=== PATIENT | female | born 1985 | race American Indian/Alaskan Native ===

== ENCOUNTER 2016-08-15 10:38 | Emergency (ER) | payer SELFPAY ==
[2016-08-15 11:00] VITALS: BP 120/71
[2016-08-15 11:35] LABS: Blood Urea Nitrogen 6 mg/dL (7-17); Calcium 9.4 mg/dL (8.4-10.2); Carbon Dioxide 22 mmol/L (22-30); Glucose 98 mg/dL (65-100)
[2016-08-15 11:36] LABS: Anion Gap 17 mmol/L; Potassium 3.5 mmol/L (3.6-5.0); Sodium 139 mmol/L (137-145)
[2016-08-15 12:02] LABS: Basophils % (Auto) 0.7 % (0.0-1.8); Eosinophils % (Auto) 1.2 % (0.0-4.3); Hematocrit 40.7 % (30.3-42.9); Hemoglobin 13.6 gm/dl (10.1-14.3); Mean Corpuscular HGB Conc 34 % (30-34); Mean Corpuscular Hemoglobin 32 pg (28-32); Mean Corpuscular Volume 94 fl (79-97); Platelet Count 195 K/mm3 (140-440); Red Blood Count 4.32 M/mm3 (3.65-5.03); Red Cell Distribution Width 13.1 % (13.2-15.2); White Blood Count 5.8 K/mm3 (4.5-11.0)
[2016-08-15 13:47] LABS: Bacteria,Urine 2+ /HPF (Negative); Bilirubin,Urine NEG (Negative); Blood,Urine NEG (Negative); Ketones,Urine TR mg/dL (Negative); Leukocyte Esterase,Urine TR (Negative); Mucus,Urine 1+ /HPF; Nitrite,Urine NEG (Negative); Protein,Urine <15 mg/dL mg/dL (Negative)
--- NOTE | 2016-08-16 12:43 | ED Elopement Review ---
ED Pt Elopement review - Results review Lab results: Laboratory Tests 08/15/16 08/15/16 08/15/16 11:10 11:10 12:23 WBC 5.8 RBC 4.32 Hgb 13.6 Hct 40.7 MCV 94 MCH 32 MCHC 34 RDW 13.1 L Plt Count 195 Lymph % (Auto) 42.0 H [place] % (Auto) 6.7 Eos % (Auto) 1.2 Baso % (Auto) 0.7 Lymph # 2.4 [place] # 0.4 Eos # 0.1 Baso # 0.0 Seg Neutrophils % 49.4 Seg Neutrophils # 2.9 Sodium 139 Potassium 3.5 L Chloride 104.0 Carbon Dioxide 22 Anion Gap 17 BUN 6 L Creatinine 0.6 L Estimated GFR > 60 BUN/Creatinine Ratio 10.00 Glucose 98 Calcium 9.4 Urine Color Yellow Urine Turbidity Clear Urine pH 6.0 Ur Specific [place] 1.018 Urine Protein <15 mg/dl Urine Glucose (UA) Neg Urine Ketones Tr Urine Blood Neg Urine Nitrite Neg Ur Reducing Substances Not Reportable Urine Bilirubin Neg Urine Ictotest Not Reportable Urine Urobilinogen 4.0 Ur Leukocyte Esterase Tr Urine WBC (Auto) 6.0 Urine RBC (Auto) 5.0 U Epithel Cells (Auto) 5.0 Urine Bacteria (Auto) 2+ Urine Mucus 1+ Urine HCG, Qual Negative - Call Back decision Pt Call Back Decision: No action required
== END 2016-08-15 20:45 | disposition left against medical advice (07) ==
LOC: ED 10:38
DX: M54.9 Dorsalgia, unspecified (principal); R31.9 Hematuria, unspecified; Z53.21 Procedure and treatment not carried out due to patient leaving prior to being seen by health care provider
CPT/HCPCS: 36415; 80048; 81001; 81025; 85025

== ENCOUNTER 2016-08-16 08:45 | Emergency (ER) | payer SELFPAY ==
[2016-08-16] MEDS ORDERED: K-DUR PO ONE (12:27)
[2016-08-16 12:38] VITALS: BP 122/74
--- NOTE | 2016-08-16 19:52 | Emergency Department Report ---
Entered by LEIDA LAMAR, acting as scribe for ELDER ZAVALA PA. ED Female HPI - General Chief complaint: Urogenital-Female Stated complaint: PELVIC PAIN Time Seen by Provider: 08/16/16 10:37 Source: patient Mode of arrival: Ambulatory Limitations: No Limitations - History of Present Illness Initial comments: 31 y/o female with no significant PMHx, presents to the ED c/o pelvic pain beginning 1 month ago. Associated symptoms described as pressure, urinary pain , frequency, urinary urgency, occasional hematuria, and intermittent fever, but she denies burning with urination. The patient has "self-dosed" and taken several doses of Cipro and several doses of amoxicillin with no alleviation of the symptoms. Noted the patient had blood and urine labs done yesterday at [facility]- ED but eloped. She reports vaginal odor. Denies any bleeding or discharge. Fever / chills times. Denies any nausea vomiting. MD Complaint: pelvic pain, other (pressure with urinating.Vaginal odor) Onset/Timin -: month(s) (1) Location: suprapubic Radiation: non-radiating Severity: severe Severity scale (0 -10): 6 Quality: cramping Consistency: intermittent Improves with: none Worsens with: urination Are you Now?: No Last Menstrual Period: 07/12/16 EDC: 04/18/17 Associated Symptoms: abdominal pain, fever/chills, hematuria (occasional), other (vaginal odor without discharge). denies: vaginal discharge, vaginal bleeding, nausea/vomiting, headaches, loss of appetite, rash, seizure, shortness of breath, syncope, weakness - Related Data Sexually active: Yes Previous Rx's Medication Instructions Recorded Last Taken Type Sulfamethoxazole/Trimethoprim 1 each PO BID #10 tablet 08/16/16 Unknown Rx [Bactrim DS TAB] metroNIDAZOLE [Flagyl] 500 mg PO Q12HR #14 tab 08/16/16 Unknown Rx Allergies Allergy/AdvReac Type Severity Reaction Status Date / Time doxycycline Allergy Unknown Verified 08/16/16 09:25 ED Review of Systems Comment: All other systems reviewed and negative Constitutional: denies: chills, fever ENT: denies: throat pain Respiratory: no symptoms reported. denies: shortness of breath Cardiovascular: denies: chest pain, palpitations, edema, syncope Gastrointestinal: abdominal pain (pelvic area ), nausea, diarrhea. denies: vomiting, constipation Genitourinary: urgency, dysuria, frequency, hematuria (occasional), other ( burning with urination). denies: discharge Musculoskeletal: denies: back pain Skin: denies: rash Neurological: denies: headache, weakness, numbness, paresthesias, confusion, abnormal gait, vertigo ED Past Medical Hx - Past Medical History Previous Medical History?: Yes Additional medical history: UTi, Bacterial vaginosis - Surgical History Past Surgical History?: Yes Additional Surgical History: D&C - Family History Family history: no significant - Social History Smoking Status: Current Some Day Smoker Substance Use Type: Alcohol - Medications Home Medications: Home Medications Medication Instructions Recorded Confirmed Last Taken Type Sulfamethoxazole/Trimethoprim 1 each PO BID #10 tablet 08/16/16 Unknown Rx [Bactrim DS TAB] metroNIDAZOLE [Flagyl] 500 mg PO Q12HR #14 tab 08/16/16 Unknown Rx ED Physical Exam - General Limitations: No Limitations General appearance: alert, in no apparent distress - Head Head exam: Present: atraumatic, normocephalic, normal inspection - Eye Eye exam: Present: normal appearance, PERRL, EOMI Pupils: Present: normal accommodation - ENT ENT exam: Present: normal exam, normal orophraynx, mucous membranes moist, TM's normal bilaterally, normal external ear exam - Neck Neck exam: Present: normal inspection, full ROM. Absent: tenderness, meningismus, lymphadenopathy - Respiratory Respiratory exam: Present: normal lung sounds bilaterally. Absent: respiratory distress, chest wall tenderness - Cardiovascular Cardiovascular Exam: Present: regular rate, normal rhythm, normal heart sounds - GI/Abdominal GI/Abdominal exam: Present: soft, normal bowel sounds. Absent: distended, tenderness, guarding, rebound, rigid - Rectal Rectal exam: Present: normal inspection - External exam: Present: normal external exam. Absent: erythema, swelling, lesions, lacerations, ecchymosis, bleeding Speculum exam: Present: vaginal discharge, cervical discharge. Absent: erythema , vaginal bleeding, foreign body, tissue, laceration Bi-manual exam: Present: normal bi-manual exam. Absent: cervical motion tendernes, adnexal tenderness, adnexal mass, uterine enlargement, uterine tenderness, other - Expanded Exam Expanded Female exam: Absent: vaginal laceration, tissue present in vagina, herpetic lesions, vulvar erythema, vulvar tenderness, foreign body External exam: Present: normal Speculum exam: Present: cervical OS closed, vaginal discharge. Absent: vaginal bleeding - Extremities Exam Extremities exam: Present: normal inspection, full ROM, normal capillary refill. Absent: tenderness, pedal edema, joint swelling, calf tenderness - Back Exam Back exam: Present: normal inspection, full ROM. Absent: tenderness, CVA tenderness (R), CVA tenderness (L), muscle spasm, paraspinal tenderness, vertebral tenderness, rash noted - Neurological Exam Neurological exam: Present: alert, oriented X3, normal gait, reflexes normal. Absent: motor sensory deficit - Psychiatric Psychiatric exam: Present: normal affect, normal mood - Skin Skin exam: Present: warm, dry, intact, normal color. Absent: rash ED Course Vital Signs 08/16/16 08/16/16 09:29 12:37 Temperature 98.9 F Pulse Rate 85 82 Respiratory 18 18 Rate Blood Pressure 124/48 Blood Pressure 122/74 [Left] O2 Sat by Pulse 98 99 Oximetry - Reevaluation(s) Reevaluation #1: 08/16/16 12:20 had uneventful ED course. ED Medical Decision Making - Medical Decision Making ED course: Patient with diagnosis of bacterial vaginosis, urinary tract infection, hypokalemia. She was treated with K-Dur 40 mEq in emergency room to repeat potassium. Discussed with Her foods that are high in potassium. Juan Ramon major to drink Gatorade and increase her fluid intake to 2-3 L of fluid per day. Patient was understanding of discharge diagnosis and treatment plan. Patient discharged home with prescription for Flagyl and Bactrim. I also instructed her to follow up with outside Medical Center if she doesn't have a primary care doctor. ED Disposition Clinical Impression: Dysuria, Acute cystitis without hematuria, Bacterial vaginosis, Pelvic pain, Hypokalemia Disposition: DISCHARGED TO HOME OR SELFCARE Is pt being admited?: No Does the pt Need Aspirin: No Condition: Stable Instructions: Bacterial Vaginosis (ED), Urinary Tract Infection in Women (ED), Hypokalemia (ED), Dysuria (ED), Abdominal Pain (ED) Additional Instructions: Your Potassium was mildly elevated today so make sure he eat banana twice a day. Take medication as prescribed Follow up [facility] since she do not have a primary care physician. Drink plenty of Gatorade to increase potassium and also include water. Prescriptions: metroNIDAZOLE [Flagyl] 500 mg PO Q12HR #14 tab Sulfamethoxazole/Trimethoprim [Bactrim DS TAB] 1 each PO BID #10 tablet Referrals: [facility] [Outside] - 2-3 Days PRIMARY CARE,MD [Primary Care Provider] - 2-3 Days Forms: STI Treatment and Prevention, Work/School Release Form(ED) This documentation as recorded by the BRIANDA atwood GRACE,accurately reflects the service I personally performed and the decisions made by ,ELDER ZAVALA PA.
== END 2016-08-16 12:37 | disposition home or self-care (01) ==
LOC: ED 08:45
DX: R30.0 Dysuria (principal); N30.00 Acute cystitis without hematuria; N76.0 Acute vaginitis; R10.2 Pelvic and perineal pain; E87.6 Hypokalemia; Z87.440 Personal history of urinary (tract) infections; F17.200 Nicotine dependence, unspecified, uncomplicated; Z88.8 Allergy status to other drugs, medicaments and biological substances
CPT/HCPCS: 87210; 87591; 99284